=== PATIENT | female | born 1980 | race Caucasian/White ===

== ENCOUNTER → 2024-02-11 14:07 | Outpatient (CLI) | payer OTHER, SELFPAY ==
--- NOTE | 2024-02-11 14:14 | DI.US.S_ITS ---
PROCEDURE: US OB <= 14 WEEKS FETUS INDICATIONS: VIABILITY OUTSIDE/PRIOR DATING DATA: Last menstrual period (LMP): 11/29/2023. LMP-based estimated date of delivery ([facility]RO[place]): 09/04/2024. First dating scan (date and location): 02/11/2024. Estimated date of delivery ([facility]) from first dating scan: Not applicable. TECHNIQUE: Real-time scanning was performed of the fetus and maternal pelvic organs, with image documentation. Endovaginal scanning was also performed to better visualize the fetus and maternal ovaries. COMPARISON: None. FINDINGS: Embryo: [place]-rump length measuring 2 cm, gestational age 8 weeks 4 days Heart rate: No cardiac motion. No perigestational hemorrhage. Maternal organs: Right ovary is within normal limits. Left ovary is not seen. IMPRESSION: Quick intrauterine . [place]-rump length measuring 2 cm. No cardiac motion. Ultrasound findings diagnostic of failure. No cardiac activity with crown lump length greater than 7 mm. Comment: Findings were discussed with Serafin Hollingsworth prior to dictation. We strive to produce accurate, complete, and clear reports of imaging services. To assist us in improving patient care, this report was composed using standard report templates and voice recognition software. Therefore, it may contain abnormal punctuation, insertions and/or omissions. Occasional wrong-word or sound-alike substitutions may occur. Though we review the report and make efforts to correct it, we do recommend that the report be read carefully in proper context to recognize any text inaccuracies. Dictated by: Jeff Chandler M.D. on 02/11/2024 at 17:17 Approved by: Jeff Chandler M.D. on 02/11/2024 at 17:20
== END ==
PROVIDERS: Referring Provider Advanced Practice Midwife; Visit Provider Advanced Practice Midwife
DX: O36.80X0 Pregnancy with inconclusive fetal viability, not applicable or unspecified (principal)
CPT/HCPCS: 76801; 76817